=== PATIENT | male | born 1955 | race Two or more races ===

== ENCOUNTER 2024-05-29 19:54 | Emergency (ER) | payer OTHER ==
[~2024-05-29] VITALS: Ht 182.9 cm; Wt 81.8 kg
--- NOTE | 2024-05-29 20:14 | ED.PDOC ---
History of Present Illness HPI Comments 68 y/o M is BIBA for c/o multiple seizure episodes, today. Per EMS report, patient's spouse called after patient was reported to have had a witnessed seizure episode at home after having sudden syncopal episode with fall, this evening. Patient was noted to have been found awake but clammy and hypotensive, with no signs of postictal state and only endorsement of diarrhea that have been ongoing for the past 2x days. Patient was then reported to have had another syncope and seizure after deciding to go to the bathroom for "TUMS" medications and vomiting once. Patient was also noted to have absence of a postictal state following second seizure. En route, he was given 300ml NS and Zofran. At time of assessment, patient reports limited recollection of events and feels slightly short of breath. He denies any current additional injuries or pain complaints, nausea, vomiting, fever, chills, or other associated symptoms at this time. Chief Complaint: Seizure Time Seen by MD: 20:00 Reviewed Notes: Nurses Notes, Clip Riveter Notes, Medications, Allergies Allergies: Coded Allergies: NO KNOWN ALLERGIES (Unverified , 05/29/24) Information Source: Patient, Emergency Med Personnel Mode of Arrival: EMS Severity: Moderate Timing: Hours Duration: Minutes Prehospital treatment: 12 Lead EKG, Security Installation Technician, IVF (300ml NS), Other (Zofran ) Past Medical History PAST MEDICAL HISTORY: Denies Surgical History: Denies all surgeries Family History Family History: Unknown Social History Smoker: Non-Smoker Alcohol: Denies ETOH Use Drugs: Denies Drug Use Lives In: Home All Other Systems: Reviewed and Negative (Comprehensive systems review obtained and negative except for what is stated in the HPI. ) Physical Exam General Appearance: No Apparent Distress, Normal HEENT: Normal ENT Inspection, Pharynx Normal, TMs Normal Neck: Full Range of Motion, Non-Tender, Normal, Normal Inspection Respiratory: Chest Non-Tender, Crackles (bilateral lung shetty, with left being greater than right ), No Accessory Muscle Use, Respiratory Distress (mild), Wheezing (bilateral lung shetty, with left being greater than right ) Cardiovascular: No Edema, No JVD, No Murmur, No Gallop, Normal Peripheral Pulses, Regular Rate/Rhythm Breast Exam: Deferred Gastrointestinal: No Organomegaly, Non Tender, No Pulsatile Mass, Normal Bowel Sounds, Soft Genitalia: Deferred Pelvic: Deferred Rectal: Deferred Extremities: No calf tenderness, Normal capillary refill, Normal inspection, Normal range of motion, Non-tender, No pedal edema Musculoskeletal : Apperance: Normal Neurologic: Alert, foam rubber fabricator II-XII nml as Tested, No Motor Deficits, Normal Affect, Normal Mood, No Sensory Deficits Cerebellar Function: Normal Reflexes: Normal Skin: Dry, Normal Color, Warm Lymphatic: No Adenopathy Was a procedure done? Was a procedure done?: No Differential Dx Considerations may include: seizure, pseudoseizure, viral syndrome, URI, PNA, among others X-Ray, Labs, Meds, VS Vital Signs Date Time Temp Pulse Resp B/P (MAP) Pulse Ox O2 Delivery O2 Flow Rate FiO2 05/29/24 20:39 89 05/29/24 20:30 16 88 Room Air* 0 21 21 05/29/24 20:15 97.8 88 14 121/56 (77) 92 97.8 05/29/24 19:58 98.6 84 20 155/72 (99) 97 98.6 Lab Test 05/29/24 21:15 05/29/24 20:23 05/29/24 20:18 Range/Units Troponin I High Sensitivity Pending 4 </=54 ng/L Lactic Acid Level 1.9 0.4-2.0 mmol/L White Blood Count 6.1 4.4-10.8 10^3/uL Red Blood Count 5.13 4.5-5.90 10^6/uL Hemoglobin 14.3 13.5-17.5 g/dL Hematocrit 44.2 41.0-53.0 % Mean Corpuscular Volume 86.3 80.0-100.0 fL Mean Corpuscular Hemoglobin 27.9 L 28.0-32.0 pg Mean Corpuscular Hemoglobin Concent 32.3 32.0-36.0 g/dL Red Cell Distribution Width 16.6 H 11.8-14.3 % Platelet Count 214 140-450 10^3/uL Mean Platelet Volume 7.7 6.9-10.8 fL Neutrophils (%) (Auto) 69.5 37.0-80.0 % Lymphocytes (%) (Auto) 24.5 10.0-50.0 % Monocytes (%) (Auto) 5.7 0.0-12.0 % Eosinophils (%) (Auto) 0.1 0.0-7.0 % Basophils (%) (Auto) 0.2 0.0-2.0 % Neutrophils # (Auto) 4.2 1.6-8.6 10 ^3/uL Lymphocytes # (Auto) 1.5 0.4-5.4 10 ^3/uL Monocytes # (Auto) 0.4 0-1.3 10 ^3/uL Eosinophils # (Auto) 0 0-0.8 10 ^3/uL Basophils # (Auto) 0 0-0.2 10 ^3/uL Nucleated Red Blood Cells 0.1 % Sodium Level 139 136-145 mmol/L Potassium Level 4.1 3.5-5.1 mmol/L Chloride Level 109 H 98-107 mmol/L Carbon Dioxide Level 21 20-31 mmol/L Anion Gap 9 5-15 Blood Urea Nitrogen 15 9-23 mg/dL Creatinine 1.24 0.700-1.30 mg/dL Glomerular Filtration Rate Calc 63 >90 mL/min BUN/Creatinine Ratio 12.1 10.0-20.0 Serum Glucose 114 H 74-106 mg/dL Calcium Level 8.7 8.7-10.4 mg/dL Magnesium Level 1.8 1.6-2.6 mg/dL Total Bilirubin 0.2 0.2-1.0 mg/dL Aspartate Amino Transferase (AST) 43 H 13-40 U/L Alanine Aminotransferase (ALT) 29 7-40 U/L Alkaline Phosphatase 636 H 46-116 U/L Total Protein 7.3 5.7-8.2 g/dL Albumin 3.9 3.2-4.8 g/dL Lipase 30 12-53 U/L Current Medications Medications (Trade) Dose Ordered Sig/Aj Route Start Time Stop Time Status Last Admin Sodium Chloride 1,000 ml @ 1,000 mls/hr Q1H ONCE IVB 05/29/24 20:15 05/29/24 21:14 DC 05/29/24 20:26 Albuterol (Ventolin Medneb) 5 mg ONCE ONCE NEB 05/29/24 20:15 05/29/24 20:16 DC 05/29/24 20:25 Ipratropium West (Atrovent Medneb) 0.5 mg ONCE ONCE NEB 05/29/24 20:15 05/29/24 20:16 DC 05/29/24 20:25 Piperacillin Sod/ Tazobactam Sod 100 ml @ 100 mls/hr ONCE ONCE IV 05/29/24 20:15 05/29/24 21:14 DC 05/29/24 20:26 [place] [address] Ph: [phone] DIAGNOSTIC IMAGING Diagnostic Imaging Report : [id number] Signed PATIENT: ANTONELLA GUERRERO ACCT: [id number] UNIT: [id number] : 1955 LOC: ER ROOM / BED: / AGE / SEX: 68 / M ADM STATUS: REG ER SERVICE 02 ORDERING PHYSICIAN: SAMANTHA RAVI MD PROCEDURE(s): CXRP - CHEST PORTABLE REASON: SOB ORDER NUMBER(s): [id number], ACCESSION NUMBER(s): [id number] CHEST RADIOGRAPH Indication: SOB Technique: Single frontal view of the chest was obtained Comparison: None FINDINGS: Lines and Tubes: None Lungs: Bibasilar areas of atelectasis. Pleura: No effusion. No pneumothorax. Cardiomediastinal contours: Unremarkable Bones: No acute osseous abnormality. IMPRESSION: 1. Bibasilar areas of atelectasis. ATED BY: SCOTT KRISHNA Jr., DO DICTATED DATE/TIME: 05/29/242112 SIGNED BY: SCOTT KRISHNA Jr., SIGNED DATE/TIME: 05/29/242112 CC: [place] [address] Ph: [phone] DIAGNOSTIC IMAGING Diagnostic Imaging Report : [id number] Signed PATIENT: ANTONELLA GUERRERO ACCT: [id number] UNIT: [id number] : 1955 LOC: ER ROOM / BED: / AGE / SEX: 68 / M ADM STATUS: REG ER SERVICE 06 ORDERING PHYSICIAN: SAMANTHA RAVI MD PROCEDURE(s): HWOCT - HEAD WITHOUT CONTRAST REASON: syncope vs seizure ORDER NUMBER(s): [id number], ACCESSION NUMBER(s): [id number] EXAM: CT HEAD WITHOUT CONTRAST INDICATION: syncope vs seizure TECHNIQUE: CT of the head without intravenous contrast. Radiation Dose Information: CT Dose: CTDI volume is 53.84 mGy. Dose-length product is 972.59 mGy*cm The dose indicators for CT are the volume Computed Tomography (CT) Dose Index (CTDIvol) and the Dose Length Product (DLP), and are measured in units of mGy and mGy-cm, respectively. These indicators are not patient dose, but values generated from the CT scanner acquisition factors. The report includes radiation exposure data for exposures received during this examination. COMPARISON: None FINDINGS: There is no evidence of acute intracranial hemorrhage, extra-axial collection, mass effect, midline shift, herniation or hydrocephalus. The ventricles, sulci and cisterns are age appropriate. The jay-white differentiation is intact. Patchy periventricular and subcortical white matter hypoattenuation is nonspecific but may be related to small vessel ischemic disease. The visualized paranasal sinuses and mastoid air cells are clear. The surrounding soft tissues and osseous structures are unremarkable. IMPRESSION: 1. No acute intracranial hemorrhage. 2. No CT findings of territorial ischemia. 3. No CT findings of intracranial mass or mass effect. ATED BY: SCOTT KRISHNA Jr., DO DICTATED DATE/TIME: 05/29/242103 SIGNED BY: SCOTT KRISHNA Jr., DO SIGNED DATE/TIME: 05/29/242103 CC: Time of 1ST Reevaluation: 20:30 Reevaluation 1ST: Unchanged Patient Education/Counseling: Diagnosis, Treatment Family Education/Counseling: No Family Present Additional Information Previous medical encounters reviewed: n/a The following tests were ordered, and results were reviewed by me: lactic acid w/reflex, magnesium, CXR, blood culture, UA, lipase, CMP, CBC Additional Information was gathered from interviewing the following independent historians: EMS I reviewed and agreed with the following test results read by other providers: CXR I discussed treatment and results with medical personnel and: Patient Sepsis focused exam: focus exam completed (In the initial resuscitation at least 30 mL/kg of IV crystalloid fluid was NOT given within the first 3 hr due to concerns of fluid overload), time: (2099) Sepsis Sepsis Reasesment Focused Exam Sepsis focused exam: focus exam completed (In the initial resuscitation at least 30 mL/kg of IV crystalloid fluid was NOT given within the first 3 hr due to concerns of fluid overload), time: (2099) Departure 1 Departure Time of Disposition: 21:24 Impression: Primary Impression: Syncopal seizure Additional Impressions: Vomiting and diarrhea Aspiration into respiratory tract Bronchospasm Disposition: ADMITTED INPATIENT Admit to: Med Surg Condition: Guarded Discharged With: Self, Spouse Comments Syncope with Seizure-like Activity and Aspiration Chief Complaint: Syncope with seizure-like activity and diarrhea History of Present Illness: 68-year-old male presenting with syncope and seizure-like activity in the context of acute diarrheal illness. Patient reports a 2-day history of diarrhea with an episode today. While in the bathroom, patient experienced a syncopal episode accompanied by tonic-clonic activity. EMS witnessed the event and noted that patient regained consciousness immediately without a typical postictal phase. The episode was accompanied by vomiting. During ED observation, patient has developed shortness of breath with bilateral wheezing, concerning for aspiration during the syncopal event. Review of Systems: Constitutional: Recent syncopal episode Gastrointestinal: Diarrhea for 2 days, episode of vomiting Respiratory: Shortness of breath, bilateral wheezing Neurological: Tonic-clonic activity during syncopal episode, no postictal phase Physical Exam: Respiratory: Bilateral wheezing noted on auscultation Lab Results: CBC: Unremarkable Chemistry Panel: Unremarkable Lactate: Normal Troponin: Normal Imaging and Other Relevant Results: No imaging results documented Medical Decision Making: Summary Statement: 68-year-old male presenting with syncope and seizure-like activity in the setting of acute diarrheal illness, complicated by aspiration with subsequent bronchospasm. Problem List: 1. Syncope with seizure-like activity 2. Aspiration pneumonia 3. Bronchospasm 4. Acute diarrhea Differential Diagnosis: 1. Vasovagal syncope vs cardiac syncope vs seizure 2. Chemical pneumonitis vs aspiration pneumonia 3. Infectious vs non-infectious diarrhea ED Course: Patient received IV Zosyn for aspiration pneumonia coverage. Supplemental oxygen and breathing treatments were administered for bronchospasm. Decision made to admit patient for further management and observation. Assessment and Plan: 1. Syncope with seizure-like activity: - Admit for observation and neurological monitoring - Neurology consultation recommended - Cardiac workup negative with normal troponin 2. Aspiration pneumonia with bronchospasm: - Continue IV Zosyn - Supplemental oxygen as needed - Continue breathing treatments - Monitor respiratory status 3. Acute diarrhea: - Supportive care - Monitor fluid status - Consider stool studies if symptoms persist Billing Information: ICD-10: R55 - Syncope and collapse ICD-10: J69.0 - Pneumonitis due to inhalation of food and vomit ICD-10: R25.2 - Cramp and spasm ICD-10: J98.01 - Acute bronchospasm ICD-10: R19.7 - Diarrhea, unspecified Critical Care Note Critical Care Time?: Yes (35 min-critical care time only) Critical care comment: Total critical care time: Approximately 36 minutes Due to a high probability of clinically significant, life threatening deterioration, the patient required my highest level of preparedness to intervene emergently and I personally spent this critical care time directly and personally managing the patient. This critical care time included obtaining a history; examining the patient; pulse oximetry; ordering and review of studies; arranging urgent treatment with development of a management plan; evaluation of patient's response to treatment; frequent reassessment; and, discussions with other providers. This critical care time was performed to assess and manage the high probability of imminent, life-threatening deterioration that could result in multi-organ failure. It was exclusive of separately billable procedures and treating other patients. Stability Stability form required: No Heart Score Heart Score: Heart Score Response (Comments) Value History N/A 0 EKG N/A 0 Age N/A 0 Risk Factors N/A 0 Troponin N/A 0 Total 0 I personally scribed for SAMANTHA RAVI MD ([email or web address]) on 05/29/24 at 20:14. Electronically submitted by Gerry Castro ([email or web address]). I personally scribed for SAMANTHA RAVI MD ([email or web address]) on 05/29/24 at 21:19. Electronically submitted by Gerry Castro ([email or web address]). SAMANTHA RAVI MD May 29, 2024 20:14
[2024-05-29 20:15] VITALS: PULSE 86; RESP 14; O2SAT 92
[2024-05-29] MEDS: ALBUTEROL SULF 2.5 MG/0.5ML(0.5%) NEB SOLN NEB ONE (20:25)
[2024-05-29] MEDS: IPRATROPIUM BROM 0.5 MG/2.5ML INH SOL NEB ONE (20:25)
[2024-05-29] MEDS: SODIUM CHLORIDE 0.9% 1,000 ML IVB ONE (20:26)
[2024-05-29] MEDS: PIPERACILLIN-TAZOB 3.375GM 100 ML IV ONE (20:26)
[2024-05-29 20:40] LABS: Basophils # (auto) 0 10 ^3/uL (0-0.2); Basophils % (auto) 0.2 % (0.0-2.0); Eosinophils # (auto) 0 10 ^3/uL (0-0.8); Eosinophils % (auto) 0.1 % (0.0-7.0); Hematocrit 44.2 % (41.0-53.0); Hemoglobin 14.3 g/dL (13.5-17.5); Lymphocytes # (auto) 1.5 10 ^3/uL (0.4-5.4); Lymphocytes % (auto) 24.5 % (10.0-50.0); Mean Corpuscular Hemoglobin 27.9 pg (28.0-32.0); Mean Corpuscular Hgb Conc. 32.3 g/dL (32.0-36.0); Mean Corpuscular Volume 86.3 fL (80.0-100.0); Monocytes # (auto) 0.4 10 ^3/uL (0-1.3); Monocytes % (auto) 5.7 % (0.0-12.0); Neutrophils # (auto) 4.2 10 ^3/uL (1.6-8.6); Neutrophils % (auto) 69.5 % (37.0-80.0); Nucleated Red Blood Cells % 0.1 %; Platelet Count (auto) 214 10^3/uL (140-450); Red Blood Cells 5.13 10^6/uL (4.5-5.90); Red Cell Distribution Width 16.6 % (11.8-14.3); White Blood Cell 6.1 10^3/uL (4.4-10.8)
[2024-05-29 20:57] LABS: Alanine Aminotransferase 29 U/L (7-40); Albumin 3.9 g/dL (3.2-4.8); Anion Gap 9 (5-15); BUN/Creatinine Ratio 12.1 (10.0-20.0); Blood Urea Nitrogen 15 mg/dL (9-23); Calcium 8.7 mg/dL (8.7-10.4); Carbon Dioxide 21 mmol/L (20-31); Lipase 30 U/L (12-53); Magnesium 1.8 mg/dL (1.6-2.6); Potassium 4.1 mmol/L (3.5-5.1); Sodium 139 mmol/L (136-145); Total Protein 7.3 g/dL (5.7-8.2)
--- NOTE | 2024-05-29 21:06 | DVH ---
EXAM: CT HEAD WITHOUT CONTRAST INDICATION: syncope vs seizure TECHNIQUE: CT of the head without intravenous contrast. Radiation Dose Information: CT Dose: CTDI volume is 53.84 mGy. Dose-length product is 972.59 mGy*cm The dose indicators for CT are the volume Computed Tomography (CT) Dose Index (CTDIvol) and the Dose Length Product (DLP), and are measured in units of mGy and mGy-cm, respectively. These indicators are not patient dose, but values generated from the CT scanner acquisition factors. The report includes radiation exposure data for exposures received during this examination. COMPARISON: None FINDINGS: There is no evidence of acute intracranial hemorrhage, extra-axial collection, mass effect, midline s hift, herniation or hydrocephalus. The ventricles, sulci and cisterns are age appropriate. The jay-white differentiation is intact. Patchy periventricular and subcortical white matter hypoattenuation is nonspecific but may be related to small vessel ischemic disease. The visualized paranasal sinuses and mastoid air cells are clear. The surrounding soft tissues and osseous structures are unremarkable. IMPRESSION: 1. No acute intracranial hemorrhage. 2. No CT findings of territorial ischemia. 3. No CT findings of intracranial mass or mass effect.
[2024-05-29 21:09] LABS: Alkaline Phosphatase 636 U/L (46-116); Aspartate Aminotransferase 43 U/L (13-40); Bilirubin, Total 0.2 mg/dL (0.2-1.0); Chloride 109 mmol/L (98-107); Glucose 114 mg/dL (74-106)
--- NOTE | 2024-05-29 21:15 | DVH ---
CHEST RADIOGRAPH Indication: SOB Technique: Single frontal view of the chest was obtained Comparison: None FINDINGS: Lines and Tubes: None Lungs: Bibasilar areas of atelectasis. Pleura: No effusion. No pneumothorax. Cardiomediastinal contours: Unremarkable Bones: No acute osseous abnormality. IMPRESSION: 1. Bibasilar areas of atelectasis.
--- NOTE | 2024-05-29 21:42 | ECG ---
[facility] Test Date: 2024-05-29 Test Time: 20:39:42 Pat Name: ANTONELLA GUERRERO Department: ED Room: Gender: M Emt/Paramedic: ER : 1955 Requested By: SAMANTHA RAVI Order Number: [id number] Reading MD: Galo Das Measurements Intervals [place] Rate: 89 P: 73 AL: 178 QRS: 55 QRSD: 82 T: 68 QT: 349 QTc: 425 Interpretive Statements Sinus rhythm Ventricular premature complex Probable left atrial enlargement Nonspecific T abnormalities, lateral leads Electronically Signed On 05-30-2024 18:50:49 PDT by Galo Das Please click the below link to view image of tracing.
[2024-05-29 23:52] LABS: Urine Bacteria None Seen /hpf (None Seen)
[2024-05-30] MEDS: ACETAMINOPHEN 325 MG TAB PO ONE (00:23)
[2024-05-30 00:36] LABS: COVID19 ANTIGEN SOFIA FIA NEGATIVE (NEGATIVE)
[2024-05-30 01:07] LABS: Urine Blood 1+ /uL (Negative); Urine Clarity Clear (Clear); Urine Color Yellow (Yellow); Urine Hyaline Cast MOD /lpf (0 - 2); Urine Mucus FEW (None Seen); Urine Protein, UAD 1+ (Negative); Urine Specific Gravity 1.025 (1.001-1.035); Urine Squamous Epithelial Cell FEW /hpf (<5); Urine Urobilinogen Normal (Negative); Urine WBC 2 /HPF (0-3); Urine pH 5.5 (5.0-9.0)
[2024-05-30] MEDS: IBUPROFEN 600 MG TAB PO ONE (01:28)
[2024-05-30 02:46] VITALS: BP 128/67; PULSE 113; RESP 25; TEMP 102.9; O2SAT 93
== END 2024-05-30 03:01 | disposition short-term general hospital (02) ==
LOC: EDBD 19:54 → ER 19:58
DX: J98.01 Acute bronchospasm (principal); R56.9 Unspecified convulsions; R55 Syncope and collapse; R11.10 Vomiting, unspecified; R19.7 Diarrhea, unspecified; Z20.822 Contact with and (suspected) exposure to COVID-19
CPT/HCPCS: 36415; 70450; 71045; 80053; 81001; 82947; 83605; 83690; 83735; 83880; 84484; 85025; 87040; 87426; 93005; 94640; 96365; 99291; J2543